=== PATIENT | female | born 2005 | race Caucasian/White ===

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

== ENCOUNTER 2023-01-13 23:41 | Emergency (ER) | payer OTHER ==
[~2023-01-13] VITALS: Ht 162.6 cm; Wt 81.6 kg
[~2023-01-13 23:41] MED LIST changes: +NAPR-1164 PO
[2023-01-14] MEDS ORDERED: KETOROLAC TROMETHAMINE 15 MG/ML VIAL ONE (00:30)
[2023-01-14] MEDS ORDERED: METOCLOPRAMIDE HCL 10 MG/2 ML VIAL ONE (00:30)
[2023-01-14] MEDS ORDERED: diphenhydrAMINE HCL 50 MG/ML VIAL ONE (00:30)
[2023-01-14] MEDS: diphenhydrAMINE HCL 50 MG/ML VIAL IV ONE (00:40)
[2023-01-14] MEDS: METOCLOPRAMIDE HCL 10 MG/2 ML VIAL IV ONE (00:40)
[2023-01-14] MEDS: IV NS 0.9% 1,000 ML BAG IV ONE (00:40)
[2023-01-14] MEDS: KETOROLAC TROMETHAMINE INJ 30 MG/ML VIAL IV ONE (00:40)
[2023-01-14 00:59] LABS: CALCIUM, SERUM 9.2 mg/dL (8.5-10.1); CREATININE 0.8 mg/dL (0.6-1.3); POTASSIUM 3.3 mmol/L (3.5-5.1)
[2023-01-14 01:04] LABS: BASOPHILS # (AUTO) 0.1 K/uL (0.0-0.2); BASOPHILS % (AUTO) 0.7 % (0.0-2.0); EOSINOPHILS # (AUTO) 0.1 K/uL (0.0-0.7); EOSINOPHILS % (AUTO) 0.7 % (0.0-6.0); HEMATOCRIT 36 % (33-45); HEMOGLOBIN 11.9 g/dL (11.5-14.8); LYMPHOCYTES # (AUTO) 2.3 K/uL (0.8-4.8); LYMPHOCYTES % (AUTO) 24.7 % (20.0-44.0); MEAN CORPUSCULAR HEMOGLOBIN 28 PG (26.0-33.0); MEAN CORPUSCULAR HGB CONC 33 g/dl (31.0-36.0); MEAN CORPUSCULAR VOLUME 85 fL (82-100); MONOCYTES # (AUTO) 0.9 K/uL (0.1-1.30); MONOCYTES % (AUTO) 9.4 % (2.0-12.0); NEUTROPHILS % (AUTO) 64.5 % (43.0-81.0); PLATELET COUNT (AUTO) 295 K/uL (150-450); RED BLOOD CELL COUNT(AUTO) 4.26 MIL/uL (4.0-5.2); RED CELL DISTRIBUTION WIDTH 14.9 % (11.5-15.0); WHITE BLOOD COUNT (AUTO) 9.3 K/uL (4.3-11.0)
[2023-01-14 02:27] VITALS: BP 137/80; TEMP 98.3; O2SAT 100
== END 2023-01-14 02:27 | disposition home or self-care (01) ==
LOC: ER 23:45
DX: R07.9 Chest pain, unspecified (principal); R51.9 Headache, unspecified; K21.9 Gastro-esophageal reflux disease without esophagitis
CPT/HCPCS: 99285; 96374; 71045; 96375; 96361; 93005; 85025; 80048; 36415; J1200; J2765; J7030; J1885

== ENCOUNTER 2023-03-01 03:01 | Emergency (ER) | payer OTHER ==
[~2023-03-01] VITALS: Ht 165.1 cm; Wt 83.9 kg
[2023-03-01] MEDS ORDERED: ONDANSETRON HCL/PF 4 MG/2 ML VIAL ONE ×2 (03:27→06:43)
[2023-03-01] MEDS ORDERED: MORPHINE SULFATE INJ 2 MG/ML DISP.SYRIN ONE (03:28)
[2023-03-01] MEDS ORDERED: MORPHINE SULFATE INJ 2 MG/ML DISP.SYRIN IV ONE (03:30)
[2023-03-01] MEDS ORDERED: IV NS 0.9% 500 ML BAG IV ONE (03:30)
[2023-03-01] MEDS ORDERED: ONDANSETRON HCL/PF 4 MG/2 ML VIAL IVP ONE (03:30)
[2023-03-01 03:58] LABS: BASOPHILS # (AUTO) 0.1 K/uL (0.0-0.2); BASOPHILS % (AUTO) 0.7 % (0.0-2.0); EOSINOPHILS # (AUTO) 0.1 K/uL (0.0-0.7); EOSINOPHILS % (AUTO) 0.8 % (0.0-6.0); HEMATOCRIT 38 % (33-45); HEMOGLOBIN 12.3 g/dL (11.5-14.8); LYMPHOCYTES # (AUTO) 2.9 K/uL (0.8-4.8); LYMPHOCYTES % (AUTO) 28.5 % (20.0-44.0); MEAN CORPUSCULAR HEMOGLOBIN 28 PG (26.0-33.0); MEAN CORPUSCULAR HGB CONC 33 g/dl (31.0-36.0); MEAN CORPUSCULAR VOLUME 85 fL (82-100); MONOCYTES # (AUTO) 0.6 K/uL (0.1-1.30); NEUTROPHILS # (AUTO) 6.4 K/uL (1.8-8.9); PLATELET COUNT (AUTO) 321 K/uL (150-450); RED BLOOD CELL COUNT(AUTO) 4.46 MIL/uL (4.0-5.2); RED CELL DISTRIBUTION WIDTH 14.3 % (11.5-15.0)
[2023-03-01 03:58] LABS: APPEARANCE,URINE CLEAR (CLEAR); BILIRUBIN,URINE NEGATIVE (NEGATIVE); BLOOD, URINE TRACE-INTA Ery/uL (NEGATIVE); COLOR,URINE YELLOW (YELLOW); KETONES,URINE NEGATIVE (NEGATIVE); LEUKOCYTE ESTERASE ,URINE NEGATIVE (NEGATIVE); NITRITE, URINE NEGATIVE (NEGATIVE); PH,URINE 5.5 (5.0-8.0); PROTEIN,URINE NEGATIVE (NEGATIVE); UGLUCOSE NEGATIVE (NEGATIVE); UROBILINOGEN,URINE 0.2 EU/dL (0.2)
[2023-03-01 04:06] LABS: CALCIUM, SERUM 9.2 mg/dL (8.5-10.1); CREATININE 0.6 mg/dL (0.6-1.3); POTASSIUM 3.4 mmol/L (3.5-5.1)
[2023-03-01 04:13] LABS: INR 0.98 (0.91-1.10); PARTIAL THROMBOPLASTIN TIME 32.2 SEC (24.3-34.3); PROTHROMBIN TIME 10.4 SECS (9.2-11.1)
[2023-03-01 04:26] LABS: ALBUMIN 4.2 g/dL (3.4-5.0); BILIRUBIN,DIRECT 0.1 mg/dL (0.0-0.2); BILIRUBIN,TOTAL 0.3 mg/dL (0.2-1.0); TOTAL PROTEIN, SERUM 8.6 g/dL (6.4-8.2)
[2023-03-01 05:06] LABS: ADD URINE CULTURE NO; BACTERIA,URINE None seen /HPF (None Seen); WBC,URINE NONE SEEN /HPF (0-3)
[2023-03-01] MEDS ORDERED: KETOROLAC TROMETHAMINE INJ 30 MG/ML VIAL ONE (05:09)
[2023-03-01] MEDS ORDERED: KETOROLAC TROMETHAMINE INJ 30 MG/ML VIAL IV ONE (05:30)
[2023-03-01] MEDS ORDERED: ONDANSETRON HCL/PF - ER 4 MG/2 ML VIAL IV ONE (07:30)
[2023-03-01] MEDS ORDERED: IBUPROFEN 600 MG TABLET ONE (07:47)
[2023-03-01] MEDS ORDERED: IBUPROFEN 600 MG TABLET PO ONE (08:00)
[2023-03-01] MEDS ORDERED: ONDANSETRON 4 MG TAB.RAPDIS ONE (08:22)
[2023-03-01] MEDS: ONDANSETRON 4 MG TAB.RAPDIS SL ONE ×2 (08:25→08:26)
[2023-03-01 08:27] VITALS: BP 138/84; TEMP 98.2; O2SAT 97
== END 2023-03-01 08:28 | disposition home or self-care (01) ==
LOC: ER 03:02
DX: N93.8 Other specified abnormal uterine and vaginal bleeding (principal); R10.2 Pelvic and perineal pain; K21.9 Gastro-esophageal reflux disease without esophagitis; Z90.49 Acquired absence of other specified parts of digestive tract
CPT/HCPCS: 99285; 96374; 76856; 96375; 96376; 85025; 80048; 80076; 81001; 36415; 85730; 86850; 84702; J1885; J2405 ×3; J7040; Q0162; J2270

== ENCOUNTER 2023-03-25 01:35 | Emergency (ER) | payer OTHER ==
[~2023-03-25] VITALS: Ht 165.1 cm; Wt 81.6 kg
[2023-03-25] MEDS ORDERED: SUMATRIPTAN SUCCINATE 6 MG/0.5 ML VIAL SQ ONE ×2 (02:30→02:36)
[2023-03-25] MEDS ORDERED: ONDANSETRON 4 MG TAB.RAPDIS PO ONE (02:30)
[2023-03-25] MEDS ORDERED: ONDANSETRON 4 MG TAB.RAPDIS ONE (02:36)
[2023-03-25] MEDS ORDERED: SUMA50TA PO (02:55)
[2023-03-25] MEDS ORDERED: ONDA4TAB5 PO (02:55)
[2023-03-25 03:05] VITALS: BP 128/90; TEMP 98.2; O2SAT 99
== END 2023-03-25 03:06 | disposition home or self-care (01) ==
LOC: ER 01:38
DX: R51.9 Headache, unspecified (principal); K21.9 Gastro-esophageal reflux disease without esophagitis; Z90.49 Acquired absence of other specified parts of digestive tract; Z60.2 Problems related to living alone
CPT/HCPCS: 99283; 96372; J3030; Q0162

== ENCOUNTER 2023-08-06 01:54 | Emergency (ER) | payer OTHER ==
[~2023-08-06] VITALS: Ht 165.1 cm; Wt 81.6 kg
[~2023-08-06 01:54] MED LIST changes: +ONDA4TAB5 PO; +SUMA50TA PO
[2023-08-06 02:24] VITALS: TEMP 98.1
[2023-08-06 02:48] LABS: BASOPHILS # (AUTO) 0.1 K/uL (0.0-0.2); BASOPHILS % (AUTO) 0.7 % (0.0-2.0); EOSINOPHILS % (AUTO) 0.4 % (0.0-6.0); HEMATOCRIT 37 % (33-45); HEMOGLOBIN 12.3 g/dL (11.5-14.8); LYMPHOCYTES # (AUTO) 2.9 K/uL (0.8-4.8); LYMPHOCYTES % (AUTO) 25.5 % (20.0-44.0); MEAN CORPUSCULAR HEMOGLOBIN 29 PG (26.0-33.0); MEAN CORPUSCULAR HGB CONC 33 g/dl (31.0-36.0); MEAN CORPUSCULAR VOLUME 86 fL (82-100); MONOCYTES # (AUTO) 0.7 K/uL (0.1-1.30); NEUTROPHILS # (AUTO) 7.7 K/uL (1.8-8.9); NEUTROPHILS % (AUTO) 67.4 % (43.0-81.0); PLATELET COUNT (AUTO) 297 K/uL (150-450); RED BLOOD CELL COUNT(AUTO) 4.31 MIL/uL (4.0-5.2); RED CELL DISTRIBUTION WIDTH 14.4 % (11.5-15.0); WHITE BLOOD COUNT (AUTO) 11.4 K/uL (4.3-11.0)
[2023-08-06 02:56] LABS: APPEARANCE,URINE CLEAR (CLEAR); BILIRUBIN,URINE NEGATIVE (NEGATIVE); BLOOD, URINE TRACE-INTA Ery/uL (NEGATIVE); COLOR,URINE YELLOW (YELLOW); KETONES,URINE NEGATIVE (NEGATIVE); LEUKOCYTE ESTERASE ,URINE NEGATIVE (NEGATIVE); NITRITE, URINE NEGATIVE (NEGATIVE); PROTEIN,URINE NEGATIVE (NEGATIVE); UGLUCOSE NEGATIVE (NEGATIVE); UROBILINOGEN,URINE 0.2 EU/dL (0.2)
[2023-08-06 02:59] LABS: PREGNANCY TEST URINE QUAL NEGATIVE (NEGATIVE)
[2023-08-06 03:10] LABS: CALCIUM, SERUM 8.7 mg/dL (8.5-10.1); CREATININE 0.7 mg/dL (0.6-1.3); POTASSIUM 3.5 mmol/L (3.5-5.1)
[2023-08-06 03:20] LABS: ALBUMIN 3.9 g/dL (3.4-5.0); BILIRUBIN,DIRECT 0.1 mg/dL (0.0-0.2); BILIRUBIN,TOTAL 0.3 mg/dL (0.2-1.0); TOTAL PROTEIN, SERUM 8.1 g/dL (6.4-8.2)
[2023-08-06] MEDS ORDERED: IV NS 0.9% 250 ML IV ONE (04:34)
[2023-08-06] MEDS ORDERED: IOHEXOL-300 100 ML VIAL IV ONE (04:34)
[2023-08-06] MEDS ORDERED: CT SWABBABLE VALVE TRANS SET 1 EA INFUS.SET MC ONE (04:35)
[2023-08-06] MEDS ORDERED: KETOROLAC TROMETHAMINE 15 MG/ML VIAL ONE (06:05)
[2023-08-06] MEDS: KETOROLAC TROMETHAMINE 15 MG/ML VIAL IV ONE (06:08)
[2023-08-06 07:21] VITALS: BP 129/88; O2SAT 98
[2023-08-06] MEDS ORDERED: ACETAMINOPHEN ES 500 MG TABLET ONE (07:28)
[2023-08-06] MEDS: ACETAMINOPHEN ES 500 MG TABLET PO ONE (07:32)
== END 2023-08-06 07:37 | disposition home or self-care (01) ==
LOC: ER 01:58
DX: N93.9 Abnormal uterine and vaginal bleeding, unspecified (principal); R10.30 Lower abdominal pain, unspecified; R10.2 Pelvic and perineal pain; K21.9 Gastro-esophageal reflux disease without esophagitis; Z98.890 Other specified postprocedural states; Z79.899 Other long term (current) drug therapy; Z60.2 Problems related to living alone
CPT/HCPCS: 99285; 74177; 96374; 76856; 85025; 80048; 83690; 80076; 84703; 81003; 36415; J7050; Q9967; J1885

== ENCOUNTER 2024-11-17 01:13 | Emergency (ER) | payer OTHER ==
[~2024-11-17] VITALS: Ht 165.1 cm; Wt 77.1 kg
[2024-11-17 01:55] VITALS: TEMP 98
[2024-11-17] MEDS ORDERED: ACETAMINOPHEN ES 500 MG TABLET ONE (02:11)
[2024-11-17] MEDS ORDERED: IBUPROFEN 600 MG TABLET ONE (02:11)
[2024-11-17] MEDS: IBUPROFEN 600 MG TABLET PO ONE (02:16)
[2024-11-17] MEDS: ACETAMINOPHEN ES 500 MG TABLET PO ONE (02:16)
[2024-11-17] MEDS ORDERED: ONDANSETRON 4 MG TAB.RAPDIS ONE (02:39)
[2024-11-17] MEDS: ONDANSETRON 4 MG TAB.RAPDIS PO ONE (02:41)
[2024-11-17] MEDS ORDERED: IBUP-1490 PO (03:16)
[2024-11-17 03:25] VITALS: BP 111/74; O2SAT 100
== END 2024-11-17 03:26 | disposition home or self-care (01) ==
LOC: ER 01:15
DX: S16.1XXA Strain of muscle, fascia and tendon at neck level, initial encounter (principal); S20.219A Contusion of unspecified front wall of thorax, initial encounter; R20.2 Paresthesia of skin; R42 Dizziness and giddiness; R51.9 Headache, unspecified; K58.9 Irritable bowel syndrome, unspecified; Z79.899 Other long term (current) drug therapy; Z87.11 Personal history of peptic ulcer disease; Z90.49 Acquired absence of other specified parts of digestive tract; Z60.2 Problems related to living alone; V43.52XA Car driver injured in collision with other type car in traffic accident, initial encounter; Y93.89 Activity, other specified; Y92.488 Other paved roadways as the place of occurrence of the external cause; Y99.8 Other external cause status
CPT/HCPCS: 99284; 72125; 71250; 70450; Q0162

== ENCOUNTER 2024-11-28 14:15 | Emergency (ER) | payer OTHER ==
[~2024-11-28] VITALS: Ht 165.1 cm; Wt 80.3 kg
[~2024-11-28 14:15] MED LIST changes: +IBUP-1490 PO
[2024-11-28 14:28] VITALS: TEMP 97.7
[2024-11-28] MEDS ORDERED: ONDANSETRON HCL/PF 4 MG/2 ML VIAL ONE (14:37)
[2024-11-28] MEDS: IV NS 0.9% 1,000 ML BAG IV ONE (14:54)
[2024-11-28] MEDS: ONDANSETRON HCL/PF - ER 4 MG/2 ML VIAL IV ONE (14:55)
[2024-11-28 15:03] LABS: PLATELET COUNT (AUTO) 306 K/uL (150-450); RED BLOOD CELL COUNT(AUTO) 4.67 MIL/uL (4.0-5.2); RED CELL DISTRIBUTION WIDTH 14.7 % (11.5-15.0); WHITE BLOOD COUNT (AUTO) 8.4 K/uL (4.3-11.0)
[2024-11-28 15:09] LABS: CALCIUM, SERUM 9.5 mg/dL (8.5-10.1); CREATININE 0.9 mg/dL (0.6-1.3); SODIUM SERUM 140.0 mmol/L (136-145); UREA NITROGEN, BLOOD 13.0 mg/dL (7-18)
[2024-11-28 15:15] LABS: ASPARTATE AMINOTRANSFERASE 21.0 U/L (15-37); TOTAL PROTEIN, SERUM 8.8 g/dL (6.4-8.2)
[2024-11-28 15:22] LABS: APPEARANCE,URINE CLEAR (CLEAR); BLOOD, URINE NEGATIVE Ery/uL (NEGATIVE); LEUKOCYTE ESTERASE ,URINE NEGATIVE (NEGATIVE); NITRITE, URINE NEGATIVE (NEGATIVE); PREGNANCY TEST URINE QUAL NEGATIVE (NEGATIVE); UGLUCOSE NEGATIVE (NEGATIVE)
[2024-11-28 15:31] LABS: AMPHETAMINE, URINE NEGATIVE (NEGATIVE); BARBITURATE, URINE NEGATIVE (NEGATIVE); BENZODIAZEPINE, URINE NEGATIVE (NEGATIVE); COCCAINE, URINE NEGATIVE (NEGATIVE); OPIATE, URINE NEGATIVE (NEGATIVE)
[2024-11-28 15:32] LABS: CANNABINOID, URINE POSITIVE (NEGATIVE)
[2024-11-28 15:44] LABS: ADD URINE CULTURE YES; COARSE GRANULAR CASTS,URINE Few /LPF (None Seen); SQUAMOUS EPITHELIAL CELL,UR Few /HPF (None Seen)
[2024-11-28] MEDS ORDERED: LORAZEPAM INJ 2 MG/ML VIAL ONE (15:52)
[2024-11-28] MEDS ORDERED: METOCLOPRAMIDE HCL 10 MG/2 ML VIAL ONE (15:52)
[2024-11-28] MEDS: LORAZEPAM INJ 2 MG/ML VIAL IV ONE (16:00)
[2024-11-28] MEDS: METOCLOPRAMIDE HCL 10 MG/2 ML VIAL IV ONE (16:01)
[2024-11-28] MEDS ORDERED: ONDA4TAB11 PO (16:17)
[2024-11-28 17:02] VITALS: BP 125/80; O2SAT 97
== END 2024-11-28 16:59 | disposition home or self-care (01) ==
LOC: ER 14:15
DX: T40.711A Poisoning by cannabis, accidental (unintentional), initial encounter (principal); R20.2 Paresthesia of skin; R11.2 Nausea with vomiting, unspecified; E11.9 Type 2 diabetes mellitus without complications; Z87.11 Personal history of peptic ulcer disease; Z90.49 Acquired absence of other specified parts of digestive tract; Z79.899 Other long term (current) drug therapy; Y92.89 Other specified places as the place of occurrence of the external cause
CPT/HCPCS: 99284; 96374; 96375; 96361; 93005; 85025; 80048; 83690; 80076; 84703; 36415; 80307; 81001; J2060; J2765; J2405; J7030; 87086-TC